=== PATIENT | male | born 1970 | race Caucasian/White ===

== ENCOUNTER 2017-12-08 02:54 | Emergency (ER) | payer OTHER ==
[~2017-12-08] VITALS: Ht 182.9 cm; Wt 102.1 kg
[2017-12-08 05:15] LABS: AMP/METHAMP Negative (Negative); BARBITURATES Negative (Negative); BENZODIAZEPINES POSITIVE (Negative); COCAINE Negative (Negative); METHADONE Negative (Negative); OPIATES Negative (Negative); PCP Negative (Negative)
[2017-12-08 06:09] LABS: HEMATOCRIT 42.2 % (42.0-52.0); MCH 32.8 pg (26.0-34.0); MCHC 33.2 g/dL (28.0-37.0); MCV 98.7 fL (80.0-100.0); RBC 4.28 mil/uL (4.50-6.00); WBC 6.1 thou/uL (4.0-11.0)
[2017-12-08 10:00] VITALS: BP 118/82
[2017-12-11] MEDS ORDERED: FLOMAX0.4 MG PO (22:48)
[2017-12-11] MEDS ORDERED: CYMBALTA30 MG PO (22:49)
[2017-12-11] MEDS ORDERED: NEURONTIN 300300 M1 PO (22:49)
[2017-12-11] MEDS ORDERED: LISINOPRIL20 MG PO (22:50)
[2017-12-11] MEDS ORDERED: TRAMADOL 50 MG50 MG PO (22:50)
[2017-12-11] MEDS ORDERED: OXYCODONE HYDROC5 GM PO (22:51)
== END 2017-12-08 10:00 | disposition home or self-care (01) ==
LOC: ER 02:54
PROVIDERS: Emergency Medicine
DX: S00.83XA Contusion of other part of head, initial encounter (principal); G47.30 Sleep apnea, unspecified; F10.129 Alcohol abuse with intoxication, unspecified; W22.8XXA Striking against or struck by other objects, initial encounter; Y93.89 Activity, other specified; Y92.89 Other specified places as the place of occurrence of the external cause; Y99.8 Other external cause status